=== PATIENT | female | born 2000 | race Caucasian/White ===

== ENCOUNTER 2021-11-14 20:26 | Emergency (ER) | payer MEDICAID ==
[~2021-11-14] VITALS: Ht 177.8 cm; Wt 94.0 kg
[2021-11-14 22:09] VITALS: BP 112/52
[2021-11-14] MEDS ORDERED: METO-293 MT (23:07)
[2021-11-14] MEDS ORDERED: METOCLOPRAMIDE HCL 10MG TABLET PO ONE (23:15)
== END 2021-11-14 23:40 | disposition home or self-care (01) ==
LOC: ER 20:26
DX: R11.10 Vomiting, unspecified (principal)
CPT/HCPCS: 99283; J8597